=== PATIENT | male | born 1990 | race Caucasian/White ===

== ENCOUNTER 2021-05-18 12:59 | Emergency (ER) | payer OTHER ==
[~2021-05-18] VITALS: Ht 170.2 cm; Wt 77.1 kg
[2021-05-18 13:38] VITALS: BP 134/73
--- NOTE | 2021-05-18 13:42 | NUR ---
PT TO AWAIT IN LOBBY
--- NOTE | 2021-05-18 14:29 | NUR ---
PT CALLED IN LOBBY, NO ANSWER AT THIS TIME
--- NOTE | 2021-05-18 15:00 | NUR ---
pt called in lobby, no answer
--- NOTE | 2021-05-18 16:07 | NUR ---
PATIENT LEFT WITHOUT BEING SEEN BY RADHA BURNHAM. NO FURTHER CARE PROVIDED FOR PATIENT.
== END 2021-05-18 16:07 | disposition left against medical advice (07) ==
LOC: MED 12:59
DX: S40.811A Abrasion of right upper arm, initial encounter (principal); Z53.21 Procedure and treatment not carried out due to patient leaving prior to being seen by health care provider; V87.8XXA Person injured in other specified noncollision transport accidents involving motor vehicle (traffic), initial encounter; Y93.89 Activity, other specified; Y92.89 Other specified places as the place of occurrence of the external cause; Y99.8 Other external cause status